=== PATIENT | male | born 1980 | race African-American/Black ===

== ENCOUNTER 2024-08-18 13:06 | Observation (INO) | payer OTHER ==
[2024-08-18 13:52] LABS: Absolute Basophils 0.1 K/uL (0-0.5); Absolute Eosinophils 0.4 K/uL (0-0.5); Absolute Lymphocytes (CBC) 1.7 K/uL (0.7-4.9); Absolute Monocytes 0.6 K/uL (0.1-1.3); Absolute Neutrophil 3.7 K/uL (1.8-8.0); Hematocrit 44.9 % (39.6-49.0); Hemoglobin 15.8 g/dL (13.6-17.9); MCH 31.7 pg (27.0-35.0); MCHC 35.1 g/dL (32.0-36.0); MCV 90.1 fL (80-100); MPV 9.3 fL (7.6-11.3); Monocytes % 8.9 % (3.3-12.3); Neutrophils % 57.1 % (41.7-73.7); Nucleated Red Blood Cells % 0.2 % (0-0); Platelets 59 thou/uL (152-406); RBC Red Blood Cell Count 4.98 M/uL (4.33-5.43); Red Cell Distribution Width 13.8 % (12.1-15.2)
[2024-08-18 14:18] LABS: Albumin 4.2 g/dL (3.4-5.0); Albumin/Globulin Ratio 1.3 (1.1-1.8); Bilirubin Direct 0.2 mg/dL (0-0.2); Bilirubin Indirect, Calculated 0.5 mg/dL (0.2-0.8); Bilirubin Total 0.7 mg/dL (0.2-1.0); Globulin 3.2 g/dL (2.3-3.5); Protein, Total 7.4 g/dL (6.4-8.2); Troponin High Sensitivity 5.9 pg/mL (<58.9)
--- NOTE | 2024-08-18 15:35 | RAD REPORT ---
EXAMINATION: ONE VIEW CHEST XR CLINICAL INDICATION: Male, 44 years old.,CHEST PAIN TECHNIQUE: Frontal chest projection is submitted. Examination is limited by patient positioning and t echnique. COMPARISON: No prior exam. FINDINGS: The lungs are well inflated and clear. No pneumothorax or sizable effusion. The heart is normal in s ize. Mediastinal contours are unremarkable. IMPRESSION: No acute or suspicious intrathoracic abnormalities.
--- NOTE | 2024-08-18 16:17 | ER ---
Nurse's Notes [facility] Name: Mati Mcgraw Age: 44 yrs Sex: Male : 1980 Arrival Date: 08/18/2024 Time: 13:06 Bed 13 Private MD: Diagnosis: Chest pain, unspecified Presentation: 08/18 13:12 Chief complaint: EMS states: Pt from [facility], c/o chest pain that started at 0300 ph this morning after he woke up coughing, [facility] nurse gave pt SL nitro x 3 and 324 ASA, IV to LAC, when EMS arrived pt was vomiting, 10 mg Reglan and Ofirmev given by EMS. Coronavirus screen: Vaccine status: Patient reports receiving the 2nd dose of the covid vaccine. Ebola Screen: No symptoms or risks identified at this time. Initial Sepsis Screen: Does the patient meet any 2 criteria? No. Patient's initial sepsis screen is negative. Does the patient have a suspected source of infection? No. Patient's initial sepsis screen is negative. Risk Assessment: Do you want to hurt yourself or someone else? Patient reports no desire to harm self or others. Onset of symptoms was August 18, 2024. 13:12 Method Of Arrival: EMS: [facility] 13:12 Acuity: JORJE 2 ph Triage Assessment: 13:18 General: Appears in no apparent distress. Behavior is calm, cooperative. Pain: ph Complains of pain in anterior aspect of left upper chest. Neuro: Level of Consciousness is awake, alert, obeys commands, Oriented to person, place, time, situation. Cardiovascular: Reports chest pain, Capillary refill < 3 seconds in bilateral fingers Patient's skin is warm and dry. Rhythm is sinus rhythm Chest pain is located in left anterior chest wall is aggravated by breathing. Respiratory: Reports cough that is Airway is patent Respiratory effort is even, unlabored, Respiratory pattern is regular, symmetrical. GI: Reports nausea, vomiting. Derm: Skin is pink, warm \T\ dry. Musculoskeletal: Circulation, motion, and sensation intact. Range of motion: intact in all extremities. Historical: - Allergies: 13:17 No Known Allergies; ph - Home Meds: 13:17 Lisinopril Oral [Active]; ph - PMHx: 13:17 Hypertensive disorder; Hypercholesterolemia; ph - PSHx: 13:17 None; ph - Immunization history:: Adult Immunizations up to date. - Infectious Disease History:: Denies. - Social history:: Smoking status: unknown. Screenin:19 [facility] ED Fall Risk Assessment (Adult) History of falling in the last 3 months, ph including since admission No falls in past 3 months (0 pts) Confusion or Disorientation No (0 pts) Intoxicated or Sedated No (0 pts) Impaired Gait Yes (1 pt) Mobility Assist Device Used No (0 pt) Altered Elimination No (0 pt) Score/Fall Risk Level 0 - 2 = Low Risk Oriented to surroundings, Maintained a safe environment, Hourly rounding (assess needs \T\ fall precautionary measures) done. Abuse screen: Denies threats or abuse. Denies injuries from another. Nutritional screening: No deficits noted. Tuberculosis screening: No symptoms or risk factors identified. Assessment: 13:19 General: SEE TRIAGE ASSESSMENT. ph 13:47 Reassessment: Patient appears in no apparent distress at this time. Patient and/or ph family updated on plan of care and expected duration. Pain level reassessed. Patient is alert, oriented x 3, equal unlabored respirations, skin warm/dry/pink. 15:00 Reassessment: Patient appears in no apparent distress at this time. Patient and/or ph family updated on plan of care and expected duration. Pain level reassessed. Patient is alert, oriented x 3, equal unlabored respirations, skin warm/dry/pink. 17:00 Reassessment: Patient appears in no apparent distress at this time. Patient and/or ph family updated on plan of care and expected duration. Pain level reassessed. Patient is alert, oriented x 3, equal unlabored respirations, skin warm/dry/pink. Vital Signs: 13:12 BP 176 / 119; Pulse 66; Resp 20; Temp 97.8; Pulse Ox 99% on R/A; Weight 92.99 kg; ph Height 5 ft. 8 in. ; 13:36 BP 144 / 105; Pulse 68; Resp 18; Pulse Ox 98% on R/A; ph 15:00 BP 151 / 110; Pulse 64; Resp 18; Pulse Ox 99% on R/A; ph 16:00 BP 152 / 102; Pulse 67; Resp 18; Pulse Ox 99% on R/A; ph 17:00 BP 161 / 104; Pulse 71; Resp 18; Pulse Ox 99% on R/A; ph 18:00 BP 168 / 108; Pulse 67; Resp 18; Temp 97.5; Pulse Ox 100% on R/A; ph 13:12 Body Mass Index 31.17 (92.99 kg, 172.72 cm) ph ED Course: 13:08 Patient arrived in ED. mb9 13:10 Jules Shirley MD is Attending Physician. rt 13:12 Arlen Lopez, RN is Primary Nurse. ph 13:17 Triage completed. ph 13:19 Arm band placed on Patient placed in an exam room, on a stretcher, on manager monitoring, ph on pulse oximetry. 13:20 Patient has correct armband on for positive identification. Bed in low position. Call ph light in reach. Side rails up X 1. night monitor on. Pulse ox on. NIBP on. Warm blanket given. 13:20 Maintain EMS IV. Dressing intact. Good blood return noted. Site clean \T\ dry. Gauge \T\ ph site: 20 LAC. Flushed with 10 mL NS. Patient maintains SpO2 saturation greater than 95% on room air. 13:36 EKG done, by ED staff, reviewed by Jules Shirley MD. ph 13:47 Initial lab(s) drawn, by or, sent to lab. ph 13:48 Basic Metabolic Panel Sent. ph 13:48 CBC with Diff Sent. ph 13:48 LFT's Sent. ph 13:48 NT PRO-BNP Sent. ph 13:48 Troponin HS Sent. ph 14:08 XRAY Chest (1 view) In Process Unspecified. EDMS 15:25 initiated transfer to [facility]. bd 15:48 no beds available at [facility], approval to admit pt here given by Randi. bd 16:16 Maria M Ward MD is Hospitalizing Provider. rt 16:43 spoke with [facility], was given pre certification number [id number]. bd 18:25 No provider procedures requiring assistance completed. Patient admitted, IV remains in ph place. Administered Medications: No medications were administered Medication: 13:20 VIS not applicable for this client. ph Outcome: 16:17 Decision to Hospitalize by Provider. rt 18:26 Patient left the ED. ls5 18:26 Admitted to Tele accompanied by tech, via wheelchair, with chart, ph 18:26 Condition: good 18:26 Instructed on the need for admit, ph Signatures: Dispatcher [employer] Deya Ambrose Patricia, RN RN ph Vanessa, Linda Anglin RN RN mb9 Jules Shirley MD MD rt Tulio Blackburn5
--- NOTE | 2024-08-18 16:17 | EDPHYS ---
Physician Documentation [facility] Name: Mati Mcgraw Age: 44 yrs Sex: Male : 1980 Arrival Date: 08/18/2024 Time: 13:06 Bed 13 Private MD: ED Physician Jules Shirley HPI: 08/18 13:20 This 44 yrs old Male presents to ER via EMS with complaints of Chest Pain. rt 13:20 Patient presents to the ED from the [facility] for chest pain, shortness of breath rt starting last night at 3. Patient states that the symptoms have significantly proved after getting aspirin, nitro. Now complains of a headache. Denies other acute complaints at this time, symptoms are moderate in severity, no other aggravating alleviating factors.. Historical: - Allergies: 13:17 No Known Allergies; ph - Home Meds: 13:17 Lisinopril Oral [Active]; ph - PMHx: 13:17 Hypertensive disorder; Hypercholesterolemia; ph - PSHx: 13:17 None; ph - Immunization history:: Adult Immunizations up to date. - Infectious Disease History:: Denies. - Social history:: Smoking status: unknown. ROS: 13:20 Constitutional: Negative for fever, chills, and weight loss, Abdomen/GI: Negative for rt abdominal pain, nausea, vomiting, diarrhea, and constipation, MS/Extremity: Negative for injury and deformity, Skin: Negative for injury, rash, and discoloration, Neuro: Negative for headache, weakness, numbness, tingling, and seizure, 13:20 Cardiovascular: Positive for chest pain, Negative for edema, 13:20 Respiratory: Positive for cough, shortness of breath, Exam: 13:20 Constitutional: This is a well developed, well nourished patient who is awake, alert, rt and in no acute distress. Head/Face: Normocephalic, atraumatic. Chest/axilla: Normal chest wall appearance and motion. Nontender with no deformity. No lesions are appreciated. Cardiovascular: Regular rate and rhythm with a normal S1 and S2. No gallops, murmurs, or rubs. Normal PMI, no JVD. No pulse deficits. Respiratory: Lungs have equal breath sounds bilaterally, clear to auscultation and percussion. No rales, rhonchi or wheezes noted. No increased work of breathing, no retractions or nasal flaring. Abdomen/GI: Soft, non-tender, with normal bowel sounds. No distension or tympany. No guarding or rebound. No evidence of tenderness throughout. Skin: Warm, dry with normal turgor. Normal color with no rashes, no lesions, and no evidence of cellulitis. MS/ Extremity: Pulses equal, no cyanosis. Neurovascular intact. Full, normal range of motion. Neuro: Awake and alert, GCS 15, oriented to person, place, time, and situation. Cranial nerves II-XII grossly intact. Motor strength 5/5 in all extremities. Sensory grossly intact. Cerebellar exam normal. Normal gait. 14:02 ECG was reviewed by the Attending Physician. rt Vital Signs: 13:12 BP 176 / 119; Pulse 66; Resp 20; Temp 97.8; Pulse Ox 99% on R/A; Weight 92.99 kg; ph Height 5 ft. 8 in. ; 13:36 BP 144 / 105; Pulse 68; Resp 18; Pulse Ox 98% on R/A; ph 15:00 BP 151 / 110; Pulse 64; Resp 18; Pulse Ox 99% on R/A; ph 16:00 BP 152 / 102; Pulse 67; Resp 18; Pulse Ox 99% on R/A; ph 17:00 BP 161 / 104; Pulse 71; Resp 18; Pulse Ox 99% on R/A; ph 18:00 BP 168 / 108; Pulse 67; Resp 18; Temp 97.5; Pulse Ox 100% on R/A; ph 13:12 Body Mass Index 31.17 (92.99 kg, 172.72 cm) ph MDM: 13:10 Medical Screening Exam initiated rt 16:17 Differential diagnosis: abnormal EKG, acute myocardial infarction, coronary artery rt disease chest wall pain, congestive heart failure. HEART Score: History: Highly Suspicious (2), ECG: Normal (0), Age: < or = 45 years (0), Risk Factors: > or = 3 Risk factors for atherosclerotic disease (2), Troponin: < or = 1 x Normal Limit (0), Total Score = 4. The patient was not given aspirin in the Emergency Department. Administered by EMS. Data reviewed: vital signs, nurses notes, lab test result(s), EKG, radiologic studies. Consideration of Admission/Observation Patient was admitted/placed on observation. Management of patient was discussed with the following: Hospitalist: Agrees to admit. Independent interpretation of the following test(s) in the Emergency Department X-Ray: My interpretation is No pneumothorax seen on my interpretation of x-ray images. Test considered but Not performed: CT: Low suspicion for pulmonary embolism, CT angiogram not indicated. Care significantly affected by the following chronic conditions: Hypertension. Counseling: I had a detailed discussion with the patient and/or guardian regarding the historical points, exam findings, and any diagnostic results supporting the discharge/admit diagnosis, lab results, radiology results, the need for further work-up and treatment in the hospital. Response to treatment: the patient's symptoms have markedly improved after treatment. 08/18 13:10 Order name: Basic Metabolic Panel; Complete Time: 14:30 rt 08/18 13:10 Order name: CBC with Diff rt 08/18 13:10 Order name: LFT's; Complete Time: 14:30 rt 08/18 13:10 Order name: NT PRO-BNP; Complete Time: 14:30 rt 08/18 13:10 Order name: Troponin HS; Complete Time: 14:30 rt 08/18 14:03 Order name: CBC Smear Scan EDMS 08/18 16:27 Order name: PTT, Activated Partial Thromb EDMS 08/18 16:27 Order name: Basic Metabolic Panel EDMS 08/18 16:27 Order name: Basic Metabolic Panel EDMS 08/18 16:27 Order name: Basic Metabolic Panel EDMS 08/18 16:27 Order name: Basic Metabolic Panel EDMS 08/18 16:27 Order name: CBC with Automated Diff EDMS 08/18 16:27 Order name: CBC with Automated Diff EDMS 08/18 16:27 Order name: CBC with Automated Diff EDMS 08/18 16:27 Order name: CBC with Automated Diff EDMS 08/18 16:27 Order name: Troponin High Sensitivity EDMS 08/18 16:27 Order name: Troponin High Sensitivity EDMS 08/18 16:27 Order name: Troponin High Sensitivity EDMS 08/18 16:27 Order name: Troponin High Sensitivity EDMS 08/18 13:10 Order name: XRAY Chest (1 view); Complete Time: 15:37 rt 08/18 16:27 Order name: Echo with Doppler EDMS 08/18 16:27 Order name: CONS Physician Consult EDMS 08/18 16:27 Order name: EKG Electrocardiogram [facility]SC 08/18 16:27 Order name: EKG Electrocardiogram [facility]SC 08/18 16:27 Order name: EKG Electrocardiogram [facility] 08/18 13:10 Order name: Cardiac monitoring; Complete Time: 13:21 rt 08/18 13:10 Order name: EKG - Nurse/Tech; Complete Time: 13:48 rt 08/18 13:10 Order name: IV Saline Lock; Complete Time: 13:48 rt 08/18 13:10 Order name: Labs collected and sent; Complete Time: 13:48 rt 08/18 13:10 Order name: O2 Per Protocol; Complete Time: 13:21 rt 08/18 13:10 Order name: O2 Sat Monitoring; Complete Time: 13:21 rt EC:02 Rate is 71 beats/min. Rhythm is regular, Normal Sinus Rhythm with No ectopy. QRS [place] rt is Normal. NE interval is normal. QRS interval is normal. QT interval is normal. No Q waves. T waves are Normal. No ST changes noted. Interpreted by me. Administered Medications: No medications were administered Disposition Summary: 08/18/24 16:17 Hospitalization Ordered Notes: Hospitalization Status: Observation rt Provider: Maria M Ward rt Condition: Stable rt Problem: new rt Symptoms: have improved rt Bed/Room Type: Standard rt Location: Telemetry/MedSurg (observation)(08/18/24 17:27) Room Assignment: 406(08/18/24 17:27) bd Diagnosis - Chest pain, unspecified rt Forms: - Medication Reconciliation Form rt - SBAR form rt - Leadership Thank You Letter rt Signatures: Dispatcher [employer] EDSC Deya Light Jessica Nunes, RN RN Arlen Lopez RN RN Jules Shirley MD MD rt Corrections: (The following items were deleted from the chart) 13:11 13:11 BASIC METABOLIC PANEL+C.LAB.BRZ ordered. EDSC EDMS 13:11 13:11 CBC+H.LAB.BRZ ordered. EDSC EDMS 13:11 13:11 HEPATIC FUNCTION+C.LAB.BRZ ordered. EDSC EDMS 13:11 13:11 PROBNP+C.LAB.BRZ ordered. EDSC EDMS 13:11 13:11 Troponin High Sensitivity+C.LAB.BRZ ordered. EDMS EDMS 13:11 13:11 Chest Single View+RAD.RAD.BRZ ordered. EDMS EDMS 16:34 16:17 rt bd 17: 16:17 Telemetry/MedSurg (observation) rt ss 17: 16:34 220 bd ss 17: 17:27 ss bd
[2024-08-18 16:40] LABS: Blood Morphology Comment NOT SEEN (NOT SEEN); Platelet Estimate DECR; White Blood Cell Scan OK (OK)
[2024-08-18] MEDS ORDERED: SODIUM CHLORIDE 0.9% 10ML INJ IV PRN (16:41)
[2024-08-18] MEDS: METOPROLOL TAR 50 MG TAB PO SCH (16:45)
--- NOTE | 2024-08-18 17:01 | P.HP ---
Certification for Inpatient Patient admitted to: Observation With expected LOS: <2 Midnights Patient will require the following post-hospital care: None Practitioner: I am a practitioner with admitting privileges, knowledge of patient current condition, hospital course, and medical plan of care. Services: Services provided to patient in accordance with Admission requirements found in Title 42 Section 412.3 of the Code of Federal Regulations Patient History Date of Service: 08/18/24 Reason for admission: Chest pain rule our ACS History of Present Illness: Patient is a 44-year-old gentleman who comes to the hospital with chest discomfort. Patient's pain was mainly the sternal region. He was not doing anything too strenuous when the chest pain happened. He stated it was on the left side and went to his neck area. He had nausea associated with it and then had some vomiting. After vomiting he still did not feel much better. He decided to come into the emergency room for further evaluation. In the ER his systolic blood pressure was 160s with a diastolic greater than 100. As he was still having the chest pain emergency room physician checked labs and his troponins were negative. Decision was made to admit him to the ICU for heparin drip and place Nitropaste on him. Patient will be admitted for inpatient hospitalization. Allergies No Known Allergies Allergy (Unverified 08/18/24 16:27) - Past Medical/Surgical History Past Medical History: Patient denies medical history Past Surgical History: Patient denies surgical history - Family History Father Medical History: Heart disease - Social History Smoking Status: Never smoker Alcohol use: No CD- Drugs: No Review of Systems 10-point ROS is otherwise unremarkable Physical Examination - Vital Signs Temperature: 98 F Blood Pressure: 160/105 Pulse: 80 Respirations: 18 - Physical Exam General: Alert, In no apparent distress, Oriented x3 HEENT: Atraumatic, PERRLA, Mucous membr. moist/pink, EOMI, Sclerae nonicteric Neck: Supple, 2+ carotid pulse no bruit, No LAD, Without JVD or thyroid abnormality Respiratory: Clear to auscultation bilaterally, Normal air movement Cardiovascular: Regular rate/rhythm, Normal S1 S2, No rubs, No murmurs Gastrointestinal: Normal bowel sounds, Soft and benign, No tenderness Musculoskeletal: No clubbing, No swelling, No tenderness Integumentary: No rashes Neurological: Normal gait, Normal speech, Normal strength at 5/5 x4 extr, Normal tone, Sensation intact, Cranial nerves 3-12 intact, Normal affect Lymphatics: No axilla or inguinal lymphadenopathy - Studies Laboratory Data (last 24 hrs) 08/18/24 08/18/24 13:45 13:45 WBC 6.40 Hgb 15.8 Hct 44.9 Plt Count 59 L Sodium 135 L Potassium 4.0 BUN 11 Creatinine 1.10 Glucose 101 Total Bilirubin 0.7 AST 29 ALT 42 Alkaline Phosphatase 54 Assessment & Plan - Problems (Diagnosis) (1) Chest pain, rule out acute myocardial infarction Current Visit: Yes Status: Acute (2) Hypertensive urgency Current Visit: Yes Status: Acute - Plan -High-sensitivity troponin -Cardiology consultation -Echocardiogram and stress test if troponins are negative -Repeat EKG -cardiac chest pain if troponins remain negative -Lipid profile Discharge Plan: Home Plan to discharge in: 24 Hours - Advance Directives Does patient have a Living Will: No Does patient have a Durable POA for Healthcare: No - Code Status/Comfort Care Code Status Assessed: Yes Code Status: Full Code Comfort Measures: Palliative Care Time Spent Managing PTS Care (In Minutes): 45
[2024-08-18] MEDS: NITROGLYCERIN 1 GM PKT TD SCH (19:39)
[2024-08-18] MEDS: ATORVASTATIN 40 MG TAB PO SCH (19:40)
[2024-08-18] MEDS: PANTOPRAZOLE 40 MG INJ IVP SCH (19:40)
[2024-08-18] MEDS: HEPARIN/D5W 25,000 UNIT/500 ML BAG IV SCH (20:04)
[2024-08-18 20:29] LABS: PT Prothrombin Time 11.5 SECONDS (9.4-12.5); Protime INR 1.03
[2024-08-18] MEDS ORDERED: METOPROLOL TAR 50 MG TAB PO SCH (21:00)
[2024-08-18] MEDS: IBUPROFEN 600 MG TAB PO ONE (21:13)
[2024-08-18] MEDS: MORPHINE 4 MG/ML SYR IV PRN (22:39)
[2024-08-18 23:38] VITALS: BMI 31.1
[2024-08-19] MEDS: METOPROLOL TARTRATE 5 MG/5 ML INJ IV STA (01:10)
[2024-08-19] MEDS: TRAMADOL HCL 50 MG TAB PO ONE (01:10)
[2024-08-19] MEDS: AMLODIPINE 10 MG TAB PO SCH (07:35)
[2024-08-19 07:43] LABS: Absolute Basophils 0.1 K/uL (0-0.5); Absolute Eosinophils 0.5 K/uL (0-0.5); Absolute Lymphocytes (CBC) 1.8 K/uL (0.7-4.9); Absolute Monocytes 0.6 K/uL (0.1-1.3); Basophils % 1.1 % (0-1.3); Eosinophils % 8.1 % (0-4.4); Hematocrit 43.4 % (39.6-49.0); Hemoglobin 14.5 g/dL (13.6-17.9); Lymphocytes % 29.3 % (15.3-44.8); MCH 30.3 pg (27.0-35.0); MCHC 33.5 g/dL (32.0-36.0); MCV 90.5 fL (80-100); MPV 8.7 fL (7.6-11.3); Monocytes % 10.7 % (3.3-12.3); Neutrophils % 50.8 % (41.7-73.7); Nucleated Red Blood Cells % 0.1 % (0-0); Platelets 258 thou/uL (152-406); Red Cell Distribution Width 13.7 % (12.1-15.2)
[2024-08-19 07:58] LABS: Anion Gap 7.1 mEq/L (5.0-15.0); Potassium 4.1 mEq/L (3.5-5.1)
[2024-08-19] MEDS ORDERED: REGADENOSON 0.4 MG/5 ML SYR IV ONE (08:43)
[2024-08-19] MEDS ORDERED: ASPIRIN EC 81 MG TAB PO SCH ×2 (09:00)
[2024-08-19] MEDS: HYDRALAZINE HCL 20 MG/ML VIAL IV ONE (09:40)
--- NOTE | 2024-08-19 09:44 | RAD REPORT ---
EXAM :Rest Stress Cardiac Imaging CLINICAL HISTORY: Chest pain TECHNIQUE: Rest images: 9.1 mCi technetium 99m sestamibi administered intravenously. Stress images: 25.6 mCi of technetium 99m sestamibi administered intravenously. Cardiac SPECT images obtained COMPARISON: None. FINDINGS: Small area of diminished radiotracer activity involves the inferior left ventricular myocardium on re st and stress sequences. Left ventricular ejection fraction equals 54% IMPRESSION: Small apparent fixed perfusion defect inferior left ventricular myocardium probably attenuation from the diaphragm. An infarct can have a similar appearance. There is no evidence of stress-induced ischemia
[2024-08-19 11:46] VITALS: O2SAT 98
[2024-08-19 12:17] VITALS: TEMP 97.2
--- NOTE | 2024-08-19 12:26 | ECHO ---
HEIGHT: 5 ft 8 in WEIGHT: 205 lb 0 oz DATE OF STUDY: 08/19/[address]: Trina Bowling RESEARCH MANAGEMENT ASSOCIATE-BC 2-DIMENSIONAL: YES M.MODE: YES DOPPLER: YES COLOR FLOW: YES TDS: PORTABLE: YES DEFINITY: BUBBLE STUDY: DIAGNOSIS: CHEST PAIN CARDIAC HISTORY: CATHERIZATION: NO SURGERY: NO PROSTHETIC VALVE: NO PACEMAKER: NO MEASUREMENTS (cm) DIASTOLIC (NORMALS) SYSTOLIC (NORMALS) IVSd 1.2 (0.6-1.2) LA Diam 2.6 (1.9-4.0) LVEF 65% LVIDd 4.0 (3.5-5.7) LVIDs 2.5 (2.0-3.5) %FS 38% LVPWd 1.3 (0.6-1.2) Ao Diam 3.0 (2.0-3.7) 2 DIMENSIONAL ASSESSMENT: RIGHT ATRIUM: NORMAL LEFT ATRIUM: NORMAL RIGHT VENTRICLE: NORMAL LEFT VENTRICLE: NORMAL TRICUSPID VALVE: NORMAL MITRAL VALVE: NORMAL PULMONIC VALVE: NORMAL AORTIC VALVE: NORMAL PERICARDIAL EFFUSION: NONE AORTIC ROOT: NORMAL LEFT VENTRICULAR WALL MOTION: NORMAL DOPPLER/COLOR FLOW: NORMAL COMMENTS: 1. NORMAL LEFT VENTRICULAR SYSTOLIC FUNCTION, EJECTION FRACTION 65%, NORMAL WALL MOTION 2. NORMAL DIASTOLIC FUNCTION TECHNOLOGIST: NAIN OLSON
--- NOTE | 2024-08-19 12:35 | TREADPHA ---
DX: UNSTABLE ANGINA Date of Study: 08/19/2024 Ht: 5' 8 " Wt: 205 lb 0 oz Consulting Physician: BA MEDICATIONS: NORVASC, LIPITOR, HEPARIN, LOPRESSOR, MORPHINE, NITROGLYCERIN, PROTONIX HISTORY: 44 YEAR OLD MALE WITH COMPLANTS OF CHEST PAIN. HISTORY OF HIGH BLOOD PRESSURE. PHYSICIAL EXAMINATION: RESTING B.P.: 150/99 RESTING H.R.: 60 RESTING EKG: SINUS RHYTHM PROTOCOL: PHARMACOLOGIC EXERCISE TIME: 3:30 B.P. AT PEAK STRESS: 144/107 IMPRESSION: LEXISCAN INJECTED. CARDIOLITE INJECTED - SEE NUCLEAR MEDICINE REPORT. SHORTNESS OF BREATH NOTED. NO INTERVENTION REQUIRED. SHORTNESS OF BREATH SUBSIDED. NO CHEST PAIN. NO ARRHYTHMIAS NOTED. NO VENTRICULAR TACHYCARDIA, SUPRAVENTRICULAR TACHCARDIA. MID AXILLARY PAIN ON LEFT SIDE OF CHEST. FOUR OUT OF TEN ON PAIN SCALE. CHEST PAIN RESIDING, TWO OUT OF TEN ON PAIN SCALE. PATIENT AWARE TO LET STAFF KNOW IF CHEST PAIN INCREASES.
--- NOTE | 2024-08-19 13:14 | P.CNS ---
Date of Consult: 08/19/24 Chief Complaint: Chest pain rule our ACS History of Present Illness: Patient with PMH of HTN, HLD presented with mid chest pain, radiated to his left side, happened during count as he had to keep his arms above his head, also report some occasional chest pain in the past, no other cardiac symptoms. Allergies No Known Allergies Allergy (Unverified 08/18/24 16:27) Home medications list reviewed: Yes Home Medications: Propranolol [Inderal] 40 mg PO TID 08/18/24 RX: Ibuprofen 400 mg PO BIDP PRN 08/18/24 RX: Terazosin HCl 1 mg PO BEDTIME 08/18/24 - Past Medical/Surgical History Diabetic: No -: HTN -: HLD - Family History Father Medical History: Heart disease - Social History Smoking Status: Unknown if ever smoked Alcohol use: No CD- Drugs: No Caffeine use: Yes Review of Systems 10-point ROS is otherwise unremarkable Physical Examination Temp Pulse Resp BP Pulse Ox 97.2 F 63 16 115/77 99 08/19/24 12:00 08/19/24 12:00 08/19/24 12:00 08/19/24 12:00 08/19/24 12:00 General: Alert, In no apparent distress HEENT: Atraumatic, PERRLA, Mucous membr. moist/pink, EOMI, Sclerae nonicteric Neck: Supple, 2+ carotid pulse no bruit, No LAD, Without JVD or thyroid abnormality Respiratory: Clear to auscultation bilaterally, Normal air movement Cardiovascular: Regular rate/rhythm, Normal S1 S2 Gastrointestinal: Normal bowel sounds, No tenderness Musculoskeletal: No tenderness Integumentary: No rashes Neurological: Normal gait, Normal speech, Normal tone, Normal affect Lymphatics: No axilla or inguinal lymphadenopathy Laboratory Data (last 24 hrs) 08/18/24 08/18/24 13:45 13:45 WBC 6.40 Hgb 15.8 Hct 44.9 Plt Count 59 L Sodium 135 L Potassium 4.0 BUN 11 Creatinine 1.10 Glucose 101 Total Bilirubin 0.7 AST 29 ALT 42 Alkaline Phosphatase 54 - Problems (1) HLD (hyperlipidemia) Current Visit: Yes Status: Acute Plan: continue lipitor (2) Chest pain, rule out acute myocardial infarction Current Visit: Yes Status: Acute Plan: atypical, enzymes are negative, echo is normal and stress test is normal No further cardiac work up needed. (3) Hypertensive urgency Current Visit: Yes Status: Acute Plan: continue current medications.
[2024-08-19] MEDS: HYDRALAZINE HCL 25 MG TABLET PO SCH (13:32)
--- NOTE | 2024-08-19 14:03 | RAD REPORT ---
EXAMINATION: XR RIGHT ANKLE CLINICAL INDICATION: . pain TECHNIQUE:Two view radiograph of the right ankle were obtained. COMPARISON: No prior exam. FINDINGS: No bone or joint abnormality detected.
--- NOTE | 2024-08-19 14:50 | EKG ---
Test Date: 2024-08-18 Test Time: 13:28:56 Restaurant Team Member: PH MEASUREMENT RESULTS: Intervals: Rate: 71 OR: 164 QRSD: 76 QT: 418 QTc: 454 [place]: P: 72 OR: 164 QRS: 65 T: 58 INTERPRETIVE STATEMENTS: Normal sinus rhythm Normal ECG No previous ECG available for comparison Electronically Signed On 08-19-24 14:46:[address]
[2024-08-19 16:15] VITALS: BP 132/90
[2024-08-20] MEDS ORDERED: PANTOPRAZOLE 40MG TABLET PO SCH (06:30)
== END 2024-08-19 17:01 ==
LOC: ER 13:06 → ERHOLD 16:16 → 2ND 16:46 → 4TH 17:59
PROVIDERS: ADMIT Hospitalist; ATTEND Hospitalist
DX: I16.0 Hypertensive urgency (principal); R07.89 Other chest pain; R11.2 Nausea with vomiting, unspecified; E78.5 Hyperlipidemia, unspecified
CPT/HCPCS: 85025; 80048; 36415; 85610; 80076; 85730; 84484 ×2; 83880; 71045; J2470; 78452; 80061; 93005; 93017; 93306; 99285; A9500; G0378; J0360; J2785